=== PATIENT | male | born 1965 | race Caucasian/White ===

== ENCOUNTER 2021-06-17 11:12 | Emergency (ER) | payer SELFPAY ==
--- NOTE | 2021-06-17 11:36 | EDM.PDOC ---
ED HPI GENERAL MEDICAL PROBLEM - General Chief Complaint: ENT Problem Stated Complaint: LEFT EAR PAIN Time Seen by Provider: 06/17/21 11:14 Source of Information: Reports: Patient History Limitations: Reports: No Limitations - History of Present Illness INITIAL COMMENTS - FREE TEXT/NARRATIVE: HISTORY AND PHYSICAL: History of present illness: Patient is a 56-year-old male who presents to the emergency room with complaints of left ear pain over the past few days. Pain is worse today. He also has pain to the left side of his throat. Patient denies any fever, chills, headache, change in vision, syncope or near syncope. Denies any chest pain, back pain, shortness of breath or cough. Denies any GI or symptoms. Patient has been eating and drinking appropriately. Review of systems: As per history of present illness and below otherwise all systems reviewed and negative. Past medical history: As per history of present illness and as reviewed below otherwise noncontr ibutory. Surgical history: As per history of present illness and as reviewed below otherwise noncontributory. Social history: See social history for further information Family history: As per history of present illness and as reviewed below otherwise noncontributory. Physical exam: General: Well developed and well nourished 56 year old male. Alert and orientated x 3. Nontoxic in appearance and in no acute distress. Vital signs are stable and have been reviewed by me. Nursing notes were reviewed. HEENT: Atraumatic, normocephalic, pupils equal and reactive bilaterally, negative for conjunctival pallor or scleral icterus, mucous membranes moist, TMs normal on right, left TM is erythematous at the 12 to 2 o'clock position with dull light reflex. Throat clear, neck supple, nontender, trachea midline. No drooling or trismus noted. No meningeal signs. No hot potato voice noted. Lungs: Clear to auscultation bilaterally. No wheezes, rales, or rhonchi. Chest nontender. Normal work of breathing, no accessory muscles used. Heart: S1S2, regular rate and rhythm without overt murmur, gallops, or rubs. No JVD. No peripheral edema Abdomen: Soft, nondistended, nontender. Skin: Intact, warm, dry. No lesions or rashes noted. Hematologic: No petechiae or purpra. Mucosa appropriate color and normal nail bed color and refill. Extremities: Atraumatic, moves all extremities per self without difficulty or deficits, negative for cords or calf pain. Neurovascular unremarkable. Neuro: Awake, alert, oriented. Cranial nerves II through XII unremarkable. Cerebellum unremarkable. Motor and sensory unremarkable throughout. Exam nonfocal. Psychiatric: Mood and affect are appropriate. Normal thought process. Answering questions appropriately. Notes: *This patient was seen and evaluated during the 2019 SARS-CoV-2 novel coronavirus pandemic period. Community viral transmission is ongoing at time of this encounter and the emergency department is operating under pandemic response procedures. I have talked with the patient about today's findings, in addition to providing specific details for plan of care. Reassessment at the time of disposition demonstrates that the patient is in no acute distress. The patient is stable for discharge, counseling was provided and we discussed in great detail signs and symptoms that would prompt them to return to the Emergency Department. Medication, follow up and supportive care measures were reviewed and discussed. Voices understanding and is agreeable to plan of care. Denies any further questions or concerns at this time. Diagnostics: None Therapeutics: None Prescription: Augmentin Impression: Otitis Media Plan: 1. You were evaluated today on an emergent basis. You have an infection of the left ear. 2. You can alternate Tylenol and ibuprofen as needed for pain and fever management. 3. We encourage you to follow up with your primary care provider and/or recommended specialist in the next few days for re-evaluation and further ca re/management. 4. If your symptoms should worsen, new symptoms develop or any of the signs and symptoms we discussed should arise please return to the emergency room or call 911 (if needed). Definitive disposition and diagnosis as appropriate pending reevaluation and review of above. Throat Pain Score (Numeric/FACES): 8 - Related Data Allergies Allergy/AdvReac Type Severity Reaction Status Date / Time No Known Allergies Allergy Verified 06/17/21 11:27 Home Meds: Home Meds Amoxicillin/Clavulanate K [Augmentin 875-125 MG] 1 tab PO BID 10 Days #20 tablet 06/17/21 [Rx] Hydrocodone/Acetaminophen [HYDROcodone-Acetaminophen 5-325 MG] 1 - 2 tab PO Q4HR PRN #10 tablet 06/17/21 [Rx] Past Medical History - Past Health History Medical/Surgical History: Denies Medical/Surgical History - Infectious Disease History Infectious Disease History: Reports: Chicken Pox Social & Family History - Tobacco Use Tobacco Use Status *Q: Current Every Day Tobacco User Years of Tobacco use: 30 Packs/Tins Daily: 0.2 - Caffeine Use Caffeine Use: Reports: None - Recreational Drug Use Recreational Drug Use: No ED ROS ENT - Review of Systems Review Of Systems: Comprehensive ROS is negative, except as noted in HPI. ED EXAM, ENT - Physical Exam Exam: See Below (See dictation) Course - Vital Signs Last Recorded V/S: Last Vital Signs Temp 97.2 F 06/17/21 11:27 Pulse 93 06/17/21 11:27 Resp 16 06/17/21 11:27 BP 149/96 H 06/17/21 11:27 Pulse Ox 95 06/17/21 11:27 Departure - Departure Time of Disposition: 11:35 Disposition: Home, Self-Care 01 Clinical Impression: Otitis media Qualifiers: Otitis media type: suppurative Chronicity: acute Laterality: left Recurrence: non-recurrent Spontaneous tympanic membrane rupture: without spontaneous rupture Qualified Code(s): H66.002 - Acute suppurative otitis media without spontaneous rupture of ear drum, left ear - Discharge Information Prescriptions: Amoxicillin/Clavulanate K [Augmentin 875-125 MG] 1 tab PO BID 10 Days #20 tablet Hydrocodone/Acetaminophen [HYDROcodone-Acetaminophen 5-325 MG] 1 - 2 tab PO Q4HR PRN #10 tablet PRN Reason: Pain (Moderate 4-6) Instructions: Otitis Media, Adult, [id number] Referrals: PCP,None [Primary Care Provider] - Forms: ED Department Discharge Additional Instructions: The following information is given to patients seen in the emergency department who are being discharged to home. This information is to outline your options for follow-up care. We provide all patients seen in our emergency department with a follow-up referral. The need for follow-up, as well as the timing and circumstances, are variable depending upon the specifics of your emergency department visit. If you don't have a primary care physician on staff, we will provide you with a referral. We always advise you to contact your personal physician following an emergency department visit to inform them of the circumstance of the visit and for follow-up with them and/or the need for any referrals to a consulting specialist. The emergency department will also refer you to a specialist when appropriate. This referral assures that you have the opportunity for follow-up care with a specialist. All of these measure are taken in an effort to provide you with optimal care, which includes your follow-up. Under all circumstances we always encourage you to contact your private physician who remains a resource for coordinating your care. When calling for follow-up care, please make the office aware that this follow-up is from your recent emergency room visit. If for any reason you are refused follow-up, please contact the [facility] Emergency Department at and asked to speak to the emergency department charge nurse. [facility] [address] [place] [id number] [facility] [address] [place] [id number] Thank you for choosing the [facility] emergency department in [place] for your medical needs today. It was a pleasure caring for you. Today you were seen in the emergency department for ear infection. 1. You were evaluated today on an emergent basis. You have an infection of the left ear. 2. You can alternate Tylenol and ibuprofen as needed for pain and fever management. 3. We encourage you to follow up with your primary care provider and/or recommended specialist in the next few days for re-evaluation and further care/management. 4. If your symptoms should worsen, new symptoms develop or any of the signs and symptoms we discussed should arise please return to the emergency room or call 911 (if needed). Sepsis Event Note (ED) - Evaluation Sepsis Screening Result: No Definite Risk - Focused Exam Vital Signs: Vital Signs Temp Pulse Resp BP Pulse Ox 06/17/21 11:27 97.2 F 93 16 149/96 H 95
== END 2021-06-17 11:45 | disposition home or self-care (01) ==
LOC: MW.ED 11:12
DX: H66.002 Acute suppurative otitis media without spontaneous rupture of ear drum, left ear (principal); Z72.0 Tobacco use
CPT/HCPCS: 99282

== ENCOUNTER 2023-04-01 18:51 | Emergency (ER) | payer MEDICAID ==
[2023-04-01] MEDS ORDERED: predniSONE 20 MG Tab PO STA (20:42)
== END 2023-04-01 20:50 | disposition home or self-care (01) ==
LOC: MW.ED 18:51
DX: R00.8 Other abnormalities of heart beat (principal); L50.9 Urticaria, unspecified
CPT/HCPCS: 93005; 99283; A9270; 93010

== ENCOUNTER 2023-08-17 16:48 | Inpatient (IN) | payer MEDICAID ==
[2023-08-17] MEDS ORDERED: Ondansetron 4 MG/2 ML SDV IVPUSH ONE (17:25)
[2023-08-17] MEDS ORDERED: Sodium Chloride 0.9% 10 ML Syringe FLUSH PRN (17:25)
[2023-08-17] MEDS ORDERED: Sodium Chloride 0.9% 2.5 ML Syringe FLUSH PRN (17:25)
[2023-08-17] MEDS ORDERED: Sodium Chloride 0.9% 1,000 ML IV ONE ×2 (17:25→19:01)
[2023-08-17 17:32] LABS: HEMATOCRIT 47.6 % (42.0-52.0); HEMOGLOBIN 16.6 g/dL (14.0-18.0); MEAN CORPUSCULAR HEMOGLOBIN 31.3 pg (28.0-32.0); MEAN CORPUSCULAR HGB CONC 34.9 g/dL (32.0-36.0); MEAN CORPUSCULAR VOLUME 89.6 fL (83.0-99.0); MEAN PLATELET VOLUME 10.7 fL (9.4-12.4); PLATELET COUNT,PLT 189 K/uL (150-400); RED BLOOD CELL COUNT 5.31 M/uL (4.52-5.90); WHITE BLOOD CELL COUNT,WBC 12.75 K/uL (3.9-11.3)
[2023-08-17 18:04] LABS: A/G RATIO 0.9 (0.9-1.6); ALBUMIN 4.3 g/dL (3.4-5.0); BILIRUBIN TOTAL 0.5 mg/dL (0.2-1.0); CALCIUM 9.9 mg/dL (8.5-10.1); CREATININE 2.4 mg/dL (0.8-1.3); EST CRCL DRUG DOSING (CG) 38.44 mL/min; POTASSIUM,K 4.1 mmol/L (3.5-5.1); PROTEIN TOTAL,TP 9.3 g/dL (6.4-8.2)
[2023-08-17 18:17] LABS: BAND ABSOLUTE MAN 0.5; BAND PERCENT MAN 4 %; LYMPHOCYTES ABSOLUTE MAN 0.9 (0.6-2.4); LYMPHOCYTES PERCENT MAN 7 % (16.0-40.0); MONOCYTES ABSOLUTE MAN 0.9 (0.0-0.8); MONOCYTES PERCENT MAN 7 % (0.0-15.0); SEG NEUTROPHILS ABSOLUTE MAN 10.5 (1.4-5.7); SEG NEUTROPHILS PERCENT MAN 82 % (48.0-80.0)
[2023-08-17 19:21] LABS: APPEARANCE,URINE CLEAR; COLOR,URINE YELLOW; GLUCOSE,URINE NEGATIVE (NEGATIVE); KETONES,URINE TRACE mg/dL (NEGATIVE); LEUKOCYTE ESTERASE,URINE NEGATIVE (NEGATIVE); NITRITE,URINE NEGATIVE (NEGATIVE); OCCULT BLOOD,URINE NEGATIVE (NEGATIVE); PROTEIN,URINE 100 mg/dL (NEGATIVE); UROBILINOGEN,URINE 0.2 EU/dL (<2.0)
[2023-08-17 19:26] LABS: BILIRUBIN,URINE SMALL (NEGATIVE)
[2023-08-17 19:37] LABS: BACTERIA,URINE FEW (NEGATIVE); MUCUS,URINE LIGHT (NONE-MOD); RBC,URINE 0-2 (0-2/HPF); SQUAMOUS EPITHELIAL CELLS,UR FEW; WBC,URINE 0-2 (0-5/HPF)
[2023-08-17] MEDS ORDERED: Loperamide 2 MG Cap PO ONE (23:18)
[2023-08-17] MEDS ORDERED: atorvaSTATin 20 MG Tab PO ONE (23:45)
[2023-08-17] MEDS: Sodium Chloride 0.9% 1,000 ML IV SCH (23:55)
[2023-08-17] MEDS: atorvaSTATin 20 MG Tab PO SCH (23:55)
[2023-08-18] MEDS: Ondansetron 4 MG/2 ML SDV IVPUSH PRN ×2 (04:41→20:50)
[2023-08-18 06:25] LABS: HEMATOCRIT 43.5 % (42.0-52.0); HEMOGLOBIN 15.3 g/dL (14.0-18.0); MEAN CORPUSCULAR HEMOGLOBIN 31.2 pg (28.0-32.0); MEAN CORPUSCULAR HGB CONC 35.2 g/dL (32.0-36.0); MEAN CORPUSCULAR VOLUME 88.8 fL (83.0-99.0); MEAN PLATELET VOLUME 10.9 fL (9.4-12.4); PLATELET COUNT,PLT 186 K/uL (150-400)
[2023-08-18] MEDS: Sodium Chloride 0.9% 1,000 ML IV SCH ×3 (06:38→20:52)
[2023-08-18 06:52] LABS: A/G RATIO 0.9 (0.9-1.6); ALBUMIN 3.9 g/dL (3.4-5.0); BILIRUBIN TOTAL 0.5 mg/dL (0.2-1.0); CALCIUM 9.5 mg/dL (8.5-10.1); CARBON DIOXIDE,CO2 23.2 mmol/L (21.0-32.0); CREATININE 1.6 mg/dL (0.8-1.3); EST CRCL DRUG DOSING (CG) 48.66 mL/min; POTASSIUM,K 3.5 mmol/L (3.5-5.1); PROTEIN TOTAL,TP 8.3 g/dL (6.4-8.2)
[2023-08-18 07:01] LABS: BAND ABSOLUTE MAN 0.6; BAND PERCENT MAN 4 %; EOSINOPHILS ABSOLUTE MAN 0.1 (0.0-0.7); EOSINOPHILS PERCENT MAN 1 % (0.0-7.0); LYMPHOCYTES ABSOLUTE MAN 1.5 (0.6-2.4); LYMPHOCYTES PERCENT MAN 11 % (16.0-40.0); MONOCYTES ABSOLUTE MAN 2.1 (0.0-0.8); MONOCYTES PERCENT MAN 15 % (0.0-15.0); SEG NEUTROPHILS ABSOLUTE MAN 9.5 (1.4-5.7); SEG NEUTROPHILS PERCENT MAN 69 % (48.0-80.0)
[2023-08-18] MEDS ORDERED: Loperamide 2 MG Cap PO ONE (09:27)
[2023-08-18] MEDS: Pantoprazole 40 MG Tab.CR PO SCH (10:19)
[2023-08-18] MEDS: Sucralfate Suspension 1 GM/10 ML Cup PO SCH (16:34)
[2023-08-18] MEDS: atorvaSTATin 20 MG Tab PO SCH (20:50)
[2023-08-18] MEDS ORDERED: atorvaSTATin 20 MG Tab PO SCH (21:00)
[2023-08-19] MEDS: Ondansetron 4 MG/2 ML SDV IVPUSH PRN ×4 (03:24→23:34)
[2023-08-19] MEDS: Sodium Chloride 0.9% 1,000 ML IV SCH ×2 (03:26→10:06)
[2023-08-19] MEDS: Sucralfate Suspension 1 GM/10 ML Cup PO SCH ×2 (05:38→06:37)
[2023-08-19 06:14] LABS: BASOPHILS ABSOLUTE AUTO 0.07 K/uL (0.00-0.20); BASOPHILS PERCENT AUTO 0.6 % (0.0-1.0); EOSINOPHILS ABSOLUTE AUTO 0.06 K/uL (0.00-0.45); EOSINOPHILS PERCENT AUTO 0.5 % (0.0-6.0); HEMATOCRIT 44.8 % (42.0-52.0); HEMOGLOBIN 15.8 g/dL (14.0-18.0); IMMATURE GRAN ABSOLUTE AUTO 0.04 K/uL (0.00-0.05); IMMATURE GRAN PERCENT AUTO 0.4 % (0.0-0.4); LYMPHOCYTES ABSOLUTE AUTO 1.14 K/uL (1.00-4.80); LYMPHOCYTES PERCENT AUTO 10.1 % (24.0-44.0); MEAN CORPUSCULAR HEMOGLOBIN 31.3 pg (28.0-32.0); MEAN CORPUSCULAR HGB CONC 35.3 g/dL (32.0-36.0); MEAN CORPUSCULAR VOLUME 88.9 fL (83.0-99.0); MEAN PLATELET VOLUME 11.2 fL (9.4-12.4); MONOCYTES PERCENT AUTO 9.8 % (0.0-8.0); NEUTROPHILS ABSOLUTE AUTO 8.85 K/uL (1.80-7.70); NEUTROPHILS PERCENT AUTO 78.6 % (41.0-71.0); PLATELET COUNT,PLT 192 K/uL (150-400); RED BLOOD CELL COUNT 5.04 M/uL (4.52-5.90); WHITE BLOOD CELL COUNT,WBC 11.26 K/uL (3.9-11.3)
[2023-08-19 06:44] LABS: ALBUMIN 3.9 g/dL (3.4-5.0); BILIRUBIN TOTAL 0.7 mg/dL (0.2-1.0); CALCIUM 9.5 mg/dL (8.5-10.1); CARBON DIOXIDE,CO2 22.5 mmol/L (21.0-32.0); CREATININE 1.6 mg/dL (0.8-1.3); EST CRCL DRUG DOSING (CG) 55.65 mL/min; PROTEIN TOTAL,TP 8.5 g/dL (6.4-8.2)
[2023-08-19 06:50] LABS: POTASSIUM,K 3.5 mmol/L (3.5-5.1)
[2023-08-19 06:52] LABS: A/G RATIO 0.9 (0.9-1.6)
[2023-08-19] MEDS: Pantoprazole 40 MG Tab.CR PO SCH (08:45)
[2023-08-19] MEDS: Pantoprazole 40 MG in Sodium Chloride 0.9% 10 ML IVPUSH SCH (09:41)
[2023-08-19] MEDS: Loperamide 2 MG Cap PO SCH ×7 (09:41→20:24)
[2023-08-19] MEDS: Sucralfate 1 GM Tab PO SCH ×2 (12:20→18:09)
[2023-08-19] MEDS: Dextrose 5%-Lactated Ringers 1,000 ML IV SCH ×2 (16:24→23:35)
[2023-08-19] MEDS: atorvaSTATin 20 MG Tab PO SCH (20:24)
[2023-08-20 06:06] LABS: BASOPHILS ABSOLUTE AUTO 0.07 K/uL (0.00-0.20); BASOPHILS PERCENT AUTO 0.5 % (0.0-1.0); EOSINOPHILS ABSOLUTE AUTO 0.12 K/uL (0.00-0.45); EOSINOPHILS PERCENT AUTO 0.9 % (0.0-6.0); HEMATOCRIT 45.1 % (42.0-52.0); HEMOGLOBIN 16.7 g/dL (14.0-18.0); IMMATURE GRAN ABSOLUTE AUTO 0.06 K/uL (0.00-0.05); IMMATURE GRAN PERCENT AUTO 0.4 % (0.0-0.4); LYMPHOCYTES ABSOLUTE AUTO 1.37 K/uL (1.00-4.80); LYMPHOCYTES PERCENT AUTO 9.8 % (24.0-44.0); MEAN CORPUSCULAR VOLUME 86.4 fL (83.0-99.0); MEAN PLATELET VOLUME 11.6 fL (9.4-12.4); MONOCYTES ABSOLUTE AUTO 1.48 K/uL (0.00-0.80); MONOCYTES PERCENT AUTO 10.6 % (0.0-8.0); NEUTROPHILS ABSOLUTE AUTO 10.92 K/uL (1.80-7.70); NEUTROPHILS PERCENT AUTO 77.8 % (41.0-71.0); PLATELET COUNT,PLT 212 K/uL (150-400); RED BLOOD CELL COUNT 5.22 M/uL (4.52-5.90); WHITE BLOOD CELL COUNT,WBC 14.02 K/uL (3.9-11.3)
[2023-08-20 06:34] LABS: A/G RATIO 0.8 (0.9-1.6); BILIRUBIN TOTAL 0.6 mg/dL (0.2-1.0); CALCIUM 9.6 mg/dL (8.5-10.1); CARBON DIOXIDE,CO2 16.3 mmol/L (21.0-32.0); EST CRCL DRUG DOSING (CG) 43.03 mL/min; POTASSIUM,K 2.8 mmol/L (3.5-5.1); PROTEIN TOTAL,TP 8.8 g/dL (6.4-8.2)
[2023-08-20] MEDS: Sucralfate 1 GM Tab PO SCH ×3 (06:34→17:04)
[2023-08-20] MEDS: Ondansetron 4 MG/2 ML SDV IVPUSH PRN ×2 (06:34→21:37)
[2023-08-20] MEDS ORDERED: Potassium Chloride 20 MEQ Tab.ER PO ONE ×2 (07:19→09:31)
[2023-08-20] MEDS: Dextrose 5%-Lactated Ringers 1,000 ML IV SCH ×3 (07:54→21:54)
[2023-08-20] MEDS: Octreotide 100 MCG/1 ML Amp SUBCUT SCH ×3 (08:02→21:41)
[2023-08-20] MEDS: Prochlorperazine 10 MG/2 ML SDV IVPUSH PRN (08:39)
[2023-08-20] MEDS: Pantoprazole 40 MG in Sodium Chloride 0.9% 10 ML IVPUSH SCH (08:40)
[2023-08-20] MEDS ORDERED: Lactated Ringers 1,000 ML IV SCH (10:45)
[2023-08-20] MEDS: Loperamide 2 MG Cap PO PRN (17:04)
[2023-08-20] MEDS: atorvaSTATin 20 MG Tab PO SCH (21:44)
[2023-08-21] MEDS: Prochlorperazine 10 MG/2 ML SDV IVPUSH PRN ×3 (01:22→18:12)
[2023-08-21] MEDS ORDERED: Lactated Ringers 500 ML IV STA (02:02)
[2023-08-21] MEDS: Dextrose 5%-Lactated Ringers 1,000 ML IV SCH ×4 (05:34→23:41)
[2023-08-21] MEDS: Sucralfate 1 GM Tab PO SCH ×4 (06:09→16:16)
[2023-08-21] MEDS: Octreotide 100 MCG/1 ML Amp SUBCUT SCH ×3 (06:09→21:42)
[2023-08-21 06:17] LABS: BASOPHILS PERCENT AUTO 0.8 % (0.0-1.0); EOSINOPHILS ABSOLUTE AUTO 0.13 K/uL (0.00-0.45); EOSINOPHILS PERCENT AUTO 1.1 % (0.0-6.0); HEMATOCRIT 44.9 % (42.0-52.0); HEMOGLOBIN 16.5 g/dL (14.0-18.0); IMMATURE GRAN ABSOLUTE AUTO 0.04 K/uL (0.00-0.05); IMMATURE GRAN PERCENT AUTO 0.3 % (0.0-0.4); LYMPHOCYTES ABSOLUTE AUTO 1.04 K/uL (1.00-4.80); LYMPHOCYTES PERCENT AUTO 8.8 % (24.0-44.0); MEAN CORPUSCULAR HEMOGLOBIN 31.5 pg (28.0-32.0); MEAN CORPUSCULAR HGB CONC 36.7 g/dL (32.0-36.0); MEAN CORPUSCULAR VOLUME 85.7 fL (83.0-99.0); MONOCYTES ABSOLUTE AUTO 1.48 K/uL (0.00-0.80); MONOCYTES PERCENT AUTO 12.5 % (0.0-8.0); NEUTROPHILS ABSOLUTE AUTO 9.08 K/uL (1.80-7.70); NEUTROPHILS PERCENT AUTO 76.5 % (41.0-71.0); PLATELET COUNT,PLT 218 K/uL (150-400); RED BLOOD CELL COUNT 5.24 M/uL (4.52-5.90); WHITE BLOOD CELL COUNT,WBC 11.87 K/uL (3.9-11.3)
[2023-08-21] MEDS: Loperamide 2 MG Cap PO PRN ×2 (06:18→16:16)
[2023-08-21] MEDS: Ondansetron 4 MG/2 ML SDV IVPUSH PRN ×3 (06:19→21:42)
[2023-08-21 06:39] LABS: A/G RATIO 0.8 (0.9-1.6); ALBUMIN 3.7 g/dL (3.4-5.0); BILIRUBIN TOTAL 0.6 mg/dL (0.2-1.0); CARBON DIOXIDE,CO2 17.3 mmol/L (21.0-32.0); CREATININE 1.8 mg/dL (0.8-1.3); EST CRCL DRUG DOSING (CG) 48.13 mL/min; MAGNESIUM 2.7 mg/dL (1.8-2.4); POTASSIUM,K 2.8 mmol/L (3.5-5.1); PROTEIN TOTAL,TP 8.4 g/dL (6.4-8.2)
[2023-08-21] MEDS: Pantoprazole 40 MG in Sodium Chloride 0.9% 10 ML IVPUSH SCH (08:51)
[2023-08-21] MEDS ORDERED: Potassium Chloride 20 MEQ Tab.ER PO ONE (11:33)
[2023-08-21] MEDS ORDERED: Sodium Chloride 0.9% 1,000 ML IV ONE (11:34)
[2023-08-21] MEDS ORDERED: Atropine/Diphenoxylate 0.025-2.5 MG Tab PO PRN (11:36)
[2023-08-21] MEDS ORDERED: NS with KCl 40mEq 1,000 ML IV SCH (11:45)
[2023-08-21 13:05] LABS: CORONAVIRUS COVID-19 NAA NEGATIVE (NEGATIVE); INFLUENZA A NAA NEGATIVE (NEGATIVE); INFLUENZA B NAA NEGATIVE (NEGATIVE)
[2023-08-21] MEDS: Enoxaparin 40 MG/0.4 ML Syringe SUBCUT SCH (13:20)
[2023-08-21] MEDS ORDERED: Acetaminophen 325 MG Tab PO PRN (14:04)
[2023-08-21 15:01] LABS: LACTIC ACID 1.3 mmol/L (0.4-2.0)
[2023-08-21] MEDS: atorvaSTATin 20 MG Tab PO SCH (21:42)
[2023-08-22] MEDS: Prochlorperazine 10 MG/2 ML SDV IVPUSH PRN (02:36)
[2023-08-22] MEDS: Dextrose 5%-Lactated Ringers 1,000 ML IV SCH ×4 (04:58→23:22)
[2023-08-22] MEDS: Octreotide 100 MCG/1 ML Amp SUBCUT SCH ×3 (06:24→21:34)
[2023-08-22] MEDS: Sucralfate 1 GM Tab PO SCH ×4 (06:25→16:47)
[2023-08-22 06:45] LABS: HEMATOCRIT 45.4 % (42.0-52.0); HEMOGLOBIN 16.4 g/dL (14.0-18.0); MEAN CORPUSCULAR HEMOGLOBIN 31.1 pg (28.0-32.0); MEAN CORPUSCULAR HGB CONC 36.1 g/dL (32.0-36.0); PLATELET COUNT,PLT 241 K/uL (150-400); RED BLOOD CELL COUNT 5.28 M/uL (4.52-5.90); WHITE BLOOD CELL COUNT,WBC 13.18 K/uL (3.9-11.3)
[2023-08-22 07:03] LABS: BAND ABSOLUTE MAN 0.5; BAND PERCENT MAN 4 %; EOSINOPHILS ABSOLUTE MAN 0.1 (0.0-0.7); EOSINOPHILS PERCENT MAN 1 % (0.0-7.0); LYMPHOCYTES ABSOLUTE MAN 1.1 (0.6-2.4); LYMPHOCYTES PERCENT MAN 8 % (16.0-40.0); MONOCYTES PERCENT MAN 15 % (0.0-15.0); SEG NEUTROPHILS ABSOLUTE MAN 9.5 (1.4-5.7); SEG NEUTROPHILS PERCENT MAN 72 % (48.0-80.0)
[2023-08-22 07:11] LABS: A/G RATIO 0.7 (0.9-1.6); ALBUMIN 3.5 g/dL (3.4-5.0); BILIRUBIN TOTAL 0.5 mg/dL (0.2-1.0); CALCIUM 9.3 mg/dL (8.5-10.1); CARBON DIOXIDE,CO2 20.1 mmol/L (21.0-32.0); CREATININE 1.6 mg/dL (0.8-1.3); EST CRCL DRUG DOSING (CG) 54.84 mL/min; MAGNESIUM 2.3 mg/dL (1.8-2.4); PHOSPHORUS 2.2 mg/dL (2.6-4.7); PROTEIN TOTAL,TP 8.3 g/dL (6.4-8.2)
[2023-08-22] MEDS ORDERED: Potassium Chloride 20 MEQ Tab.ER PO ONE (07:46)
[2023-08-22] MEDS: Pantoprazole 40 MG in Sodium Chloride 0.9% 10 ML IVPUSH SCH (08:53)
[2023-08-22] MEDS: Ondansetron 4 MG/2 ML SDV IVPUSH PRN ×3 (09:08→21:32)
[2023-08-22] MEDS: Enoxaparin 40 MG/0.4 ML Syringe SUBCUT SCH ×2 (11:26→11:53)
[2023-08-22] MEDS ORDERED: Lactated Ringers 1,000 ML IV SCH ×2 (12:15→17:00)
[2023-08-22] MEDS: Loperamide 2 MG Cap PO SCH ×3 (15:09→23:27)
[2023-08-22] MEDS: ZINC 50 MG PO SCH (15:09)
[2023-08-22] MEDS: Phosphorus #1 250 MG Tab PO SCH ×2 (18:05→23:27)
[2023-08-22] MEDS: atorvaSTATin 20 MG Tab PO SCH (21:34)
[2023-08-23] MEDS: Loperamide 2 MG Cap PO SCH ×7 (03:31→23:47)
[2023-08-23] MEDS: Dextrose 5%-Lactated Ringers 1,000 ML IV SCH ×4 (04:31→20:29)
[2023-08-23] MEDS: Ondansetron 4 MG/2 ML SDV IVPUSH PRN ×4 (04:39→20:32)
[2023-08-23] MEDS: Sucralfate 1 GM Tab PO SCH ×4 (06:21→17:58)
[2023-08-23] MEDS: Phosphorus #1 250 MG Tab PO SCH (06:21)
[2023-08-23] MEDS: Octreotide 100 MCG/1 ML Amp SUBCUT SCH (06:24)
[2023-08-23 07:37] LABS: HEMATOCRIT 41.6 % (42.0-52.0); HEMOGLOBIN 15.1 g/dL (14.0-18.0); MEAN CORPUSCULAR HEMOGLOBIN 30.9 pg (28.0-32.0); MEAN CORPUSCULAR HGB CONC 36.3 g/dL (32.0-36.0); MEAN CORPUSCULAR VOLUME 85.1 fL (83.0-99.0); MEAN PLATELET VOLUME 11.1 fL (9.4-12.4); PLATELET COUNT,PLT 244 K/uL (150-400); RED BLOOD CELL COUNT 4.89 M/uL (4.52-5.90); WHITE BLOOD CELL COUNT,WBC 11.86 K/uL (3.9-11.3)
[2023-08-23 07:53] LABS: A/G RATIO 0.7 (0.9-1.6); ALBUMIN 2.9 g/dL (3.4-5.0); BILIRUBIN TOTAL 0.5 mg/dL (0.2-1.0); CALCIUM 8.8 mg/dL (8.5-10.1); CARBON DIOXIDE,CO2 20.6 mmol/L (21.0-32.0); CREATININE 1.4 mg/dL (0.8-1.3); EST CRCL DRUG DOSING (CG) 62.28 mL/min; PHOSPHORUS 2.6 mg/dL (2.6-4.7); POTASSIUM,K 2.7 mmol/L (3.5-5.1); PROTEIN TOTAL,TP 7.2 g/dL (6.4-8.2)
[2023-08-23] MEDS ORDERED: Octreotide 100 MCG/1 ML Amp SUBCUT SCH (08:15)
[2023-08-23 08:35] LABS: BAND ABSOLUTE MAN 1.5; BAND PERCENT MAN 13 %; SEG NEUTROPHILS ABSOLUTE MAN 8.4 (1.4-5.7); SEG NEUTROPHILS PERCENT MAN 71 % (48.0-80.0)
[2023-08-23 08:36] LABS: LYMPHOCYTES ABSOLUTE MAN 0.7 (0.6-2.4); LYMPHOCYTES PERCENT MAN 6 % (16.0-40.0); MONOCYTES ABSOLUTE MAN 1.2 (0.0-0.8); MONOCYTES PERCENT MAN 10 % (0.0-15.0)
[2023-08-23] MEDS: Pantoprazole 40 MG in Sodium Chloride 0.9% 10 ML IVPUSH SCH (09:28)
[2023-08-23] MEDS: Potassium Chloride 20 MEQ Tab.ER PO SCH ×2 (09:29→10:24)
[2023-08-23] MEDS: Potassium Chloride 20 MEQ in Premix Bag 1 BAG IV SCH ×2 (09:30→12:51)
[2023-08-23] MEDS: ZINC 50 MG PO SCH (09:33)
[2023-08-23] MEDS ORDERED: Potassium Chloride 20 MEQ Tab.ER ONE (10:10)
[2023-08-23] MEDS: Octreotide 100 MCG/1 ML Amp IV SCH ×2 (10:33→17:58)
[2023-08-23] MEDS: Enoxaparin 40 MG/0.4 ML Syringe SUBCUT SCH (12:05)
[2023-08-23] MEDS: atorvaSTATin 20 MG Tab PO SCH (20:36)
[2023-08-24] MEDS: Octreotide 100 MCG/1 ML Amp IV SCH ×2 (05:48→10:56)
[2023-08-24] MEDS: Loperamide 2 MG Cap PO SCH ×3 (05:48→10:56)
[2023-08-24 06:11] LABS: HEMATOCRIT 45.5 % (42.0-52.0); HEMOGLOBIN 16.6 g/dL (14.0-18.0); MEAN CORPUSCULAR HEMOGLOBIN 30.9 pg (28.0-32.0); MEAN CORPUSCULAR HGB CONC 36.5 g/dL (32.0-36.0); MEAN CORPUSCULAR VOLUME 84.7 fL (83.0-99.0); MEAN PLATELET VOLUME 11.1 fL (9.4-12.4); PLATELET COUNT,PLT 256 K/uL (150-400); RED BLOOD CELL COUNT 5.37 M/uL (4.52-5.90); WHITE BLOOD CELL COUNT,WBC 12.86 K/uL (3.9-11.3)
[2023-08-24 06:39] LABS: A/G RATIO 0.7 (0.9-1.6); ALBUMIN 3.1 g/dL (3.4-5.0); BILIRUBIN TOTAL 0.5 mg/dL (0.2-1.0); CALCIUM 9.4 mg/dL (8.5-10.1); CARBON DIOXIDE,CO2 20.1 mmol/L (21.0-32.0); CREATININE 1.7 mg/dL (0.8-1.3); EST CRCL DRUG DOSING (CG) 51.29 mL/min; MAGNESIUM 2.1 mg/dL (1.8-2.4); PHOSPHORUS 3.5 mg/dL (2.6-4.7); POTASSIUM,K 3.1 mmol/L (3.5-5.1); PROTEIN TOTAL,TP 7.7 g/dL (6.4-8.2)
[2023-08-24 06:55] LABS: BAND ABSOLUTE MAN 4.5; BAND PERCENT MAN 35 %; LYMPHOCYTES ABSOLUTE MAN 1.2 (0.6-2.4); LYMPHOCYTES PERCENT MAN 9 % (16.0-40.0); METAMYELOCYTE ABSOLUTE MAN 0.3; METAMYELOCYTE PERCENT MAN 2 %; MONOCYTES ABSOLUTE MAN 0.9 (0.0-0.8); MONOCYTES PERCENT MAN 7 % (0.0-15.0); SEG NEUTROPHILS PERCENT MAN 47 % (48.0-80.0)
[2023-08-24] MEDS: Sucralfate 1 GM Tab PO SCH ×2 (07:40→11:50)
[2023-08-24] MEDS ORDERED: Potassium Chloride 20 MEQ Tab.ER PO ONE (08:00)
[2023-08-24] MEDS: ZINC 50 MG PO SCH (09:26)
[2023-08-24] MEDS: Pantoprazole 40 MG in Sodium Chloride 0.9% 10 ML IVPUSH SCH (09:26)
== END 2023-08-24 11:50 | disposition left against medical advice (07) | DRG 596 ==
LOC: MW.ED 16:48 → MW.MS 19:06
PROVIDERS: ADMIT Internal Medicine; ATTEND Internal Medicine
DX: C43.9 Malignant melanoma of skin, unspecified (principal); N17.9 Acute kidney failure, unspecified; R11.2 Nausea with vomiting, unspecified; T45.1X5A Adverse effect of antineoplastic and immunosuppressive drugs, initial encounter; E86.0 Dehydration; E78.00 Pure hypercholesterolemia, unspecified; Z11.52 Encounter for screening for COVID-19; F17.210 Nicotine dependence, cigarettes, uncomplicated; R19.7 Diarrhea, unspecified; D72.829 Elevated white blood cell count, unspecified; Z90.5 Acquired absence of kidney; Z79.899 Other long term (current) drug therapy
CPT/HCPCS: 0240U; 36415; 71045; 71045-26; 74176; 74176-26; 80053; 81001; 82947; 83605; 83690; 83735; 84100; 85025; 87045; 87046; 87324; 87449; 87899; A9270-GY; C9113; J0780; J1650; J2354-JA; J2354-JB-GY; J2405; J3480; J3490; J7030; J7120; J7121

== ENCOUNTER 2023-08-24 18:52 | Inpatient (IN) | payer MEDICAID ==
[2023-08-24] MEDS ORDERED: Sodium Chloride 0.9% 1,000 ML IV ONE (19:54)
[2023-08-24 20:00] LABS: HEMATOCRIT 50.1 % (42.0-52.0); HEMOGLOBIN 18.5 g/dL (14.0-18.0); MEAN CORPUSCULAR HEMOGLOBIN 31.3 pg (28.0-32.0); MEAN CORPUSCULAR HGB CONC 36.9 g/dL (32.0-36.0); MEAN CORPUSCULAR VOLUME 84.6 fL (83.0-99.0); MEAN PLATELET VOLUME 10.8 fL (9.4-12.4); PLATELET COUNT,PLT 297 K/uL (150-400); RED BLOOD CELL COUNT 5.92 M/uL (4.52-5.90); WHITE BLOOD CELL COUNT,WBC 18.78 K/uL (3.9-11.3)
[2023-08-24 20:24] LABS: A/G RATIO 0.6 (0.9-1.6); ALBUMIN 3.6 g/dL (3.4-5.0); BILIRUBIN TOTAL 0.5 mg/dL (0.2-1.0); CALCIUM 10.1 mg/dL (8.5-10.1); CARBON DIOXIDE,CO2 20.9 mmol/L (21.0-32.0); CREATININE 4.3 mg/dL (0.8-1.3); EST CRCL DRUG DOSING (CG) 20.28 mL/min; POTASSIUM,K 3.2 mmol/L (3.5-5.1); PROTEIN TOTAL,TP 9.4 g/dL (6.4-8.2)
[2023-08-24 20:36] LABS: BAND ABSOLUTE MAN 3.2; BAND PERCENT MAN 17 %; LYMPHOCYTES ABSOLUTE MAN 1.5 (0.6-2.4); LYMPHOCYTES PERCENT MAN 8 % (16.0-40.0); METAMYELOCYTE ABSOLUTE MAN 0.6; METAMYELOCYTE PERCENT MAN 3 %; MONOCYTES ABSOLUTE MAN 0.9 (0.0-0.8); MONOCYTES PERCENT MAN 5 % (0.0-15.0); SEG NEUTROPHILS ABSOLUTE MAN 12.6 (1.4-5.7); SEG NEUTROPHILS PERCENT MAN 67 % (48.0-80.0)
[2023-08-24] MEDS ORDERED: Lactated Ringers 1,000 ML IV ONE ×2 (21:11→23:01)
[2023-08-24] MEDS ORDERED: Ondansetron 4 MG/2 ML SDV IVPUSH ONE (21:19)
[2023-08-24] MEDS ORDERED: Loperamide 2 MG Cap PO PRN (23:02)
[2023-08-25] MEDS: Lactated Ringers 1,000 ML IV SCH ×5 (01:17→22:05)
[2023-08-25] MEDS: Ondansetron 4 MG/2 ML SDV IVPUSH PRN ×2 (05:38→11:44)
[2023-08-25 06:41] LABS: HEMATOCRIT 42.1 % (42.0-52.0); HEMOGLOBIN 15.8 g/dL (14.0-18.0); MEAN CORPUSCULAR HEMOGLOBIN 31.6 pg (28.0-32.0); MEAN CORPUSCULAR HGB CONC 37.5 g/dL (32.0-36.0); MEAN CORPUSCULAR VOLUME 84.2 fL (83.0-99.0); MEAN PLATELET VOLUME 10.8 fL (9.4-12.4); PLATELET COUNT,PLT 213 K/uL (150-400); WHITE BLOOD CELL COUNT,WBC 17.37 K/uL (3.9-11.3)
[2023-08-25 07:04] LABS: A/G RATIO 0.6 (0.9-1.6); ALBUMIN 2.7 g/dL (3.4-5.0); BILIRUBIN TOTAL 0.5 mg/dL (0.2-1.0); CALCIUM 8.5 mg/dL (8.5-10.1); CARBON DIOXIDE,CO2 23.9 mmol/L (21.0-32.0); CREATININE 2.7 mg/dL (0.8-1.3); EST CRCL DRUG DOSING (CG) 32.39 mL/min; POTASSIUM,K 2.7 mmol/L (3.5-5.1); PROTEIN TOTAL,TP 7.2 g/dL (6.4-8.2)
[2023-08-25 07:19] LABS: BAND ABSOLUTE MAN 4.3; BAND PERCENT MAN 25 %; LYMPHOCYTES ABSOLUTE MAN 1.9 (0.6-2.4); LYMPHOCYTES PERCENT MAN 11 % (16.0-40.0); METAMYELOCYTE ABSOLUTE MAN 0.7; METAMYELOCYTE PERCENT MAN 4 %; MONOCYTES PERCENT MAN 6 % (0.0-15.0); SEG NEUTROPHILS ABSOLUTE MAN 9.4 (1.4-5.7); SEG NEUTROPHILS PERCENT MAN 54 % (48.0-80.0)
[2023-08-25] MEDS ORDERED: Potassium Chloride 20 MEQ Tab.ER PO ONE ×2 (07:35→14:00)
[2023-08-25] MEDS: ZINC 50 MG PO SCH (10:39)
[2023-08-25] MEDS ORDERED: NS with KCl 40mEq 1,000 ML IV ONE (10:45)
[2023-08-25] MEDS ORDERED: predniSONE 20 MG Tab PO ONE (12:00)
[2023-08-25] MEDS: atorvaSTATin 20 MG Tab PO SCH (21:59)
[2023-08-26] MEDS: Ondansetron 4 MG/2 ML SDV IVPUSH PRN ×3 (00:19→14:16)
[2023-08-26] MEDS: Lactated Ringers 1,000 ML IV SCH ×6 (02:08→21:50)
[2023-08-26 06:18] LABS: BASOPHILS ABSOLUTE AUTO 0.04 K/uL (0.00-0.20); BASOPHILS PERCENT AUTO 0.2 % (0.0-1.0); EOSINOPHILS ABSOLUTE AUTO 0.01 K/uL (0.00-0.45); EOSINOPHILS PERCENT AUTO 0.1 % (0.0-6.0); HEMATOCRIT 41.6 % (42.0-52.0); HEMOGLOBIN 15.1 g/dL (14.0-18.0); IMMATURE GRAN ABSOLUTE AUTO 0.12 K/uL (0.00-0.05); IMMATURE GRAN PERCENT AUTO 0.7 % (0.0-0.4); LYMPHOCYTES ABSOLUTE AUTO 0.99 K/uL (1.00-4.80); LYMPHOCYTES PERCENT AUTO 5.7 % (24.0-44.0); MEAN CORPUSCULAR HEMOGLOBIN 30.9 pg (28.0-32.0); MEAN CORPUSCULAR HGB CONC 36.3 g/dL (32.0-36.0); MEAN CORPUSCULAR VOLUME 85.2 fL (83.0-99.0); MEAN PLATELET VOLUME 11.2 fL (9.4-12.4); MONOCYTES ABSOLUTE AUTO 0.99 K/uL (0.00-0.80); MONOCYTES PERCENT AUTO 5.7 % (0.0-8.0); NEUTROPHILS ABSOLUTE AUTO 15.25 K/uL (1.80-7.70); NEUTROPHILS PERCENT AUTO 87.6 % (41.0-71.0); PLATELET COUNT,PLT 185 K/uL (150-400); RED BLOOD CELL COUNT 4.88 M/uL (4.52-5.90)
[2023-08-26 06:26] LABS: A/G RATIO 0.6 (0.9-1.6); ALBUMIN 2.5 g/dL (3.4-5.0); BILIRUBIN TOTAL 0.5 mg/dL (0.2-1.0); CALCIUM 8.6 mg/dL (8.5-10.1); CARBON DIOXIDE,CO2 23.4 mmol/L (21.0-32.0); CREATININE 1.3 mg/dL (0.8-1.3); EST CRCL DRUG DOSING (CG) 67.28 mL/min; MAGNESIUM 2.3 mg/dL (1.8-2.4); POTASSIUM,K 3.2 mmol/L (3.5-5.1); PROTEIN TOTAL,TP 6.9 g/dL (6.4-8.2)
[2023-08-26] MEDS ORDERED: Potassium Chloride 20 MEQ Tab.ER PO ONE (07:50)
[2023-08-26] MEDS ORDERED: predniSONE 20 MG Tab PO SCH (08:00)
[2023-08-26] MEDS: ZINC 50 MG PO SCH (08:42)
[2023-08-26] MEDS: Potassium Chloride 20 MEQ in Premix Bag 1 BAG IV SCH ×2 (08:45→12:38)
[2023-08-26] MEDS: atorvaSTATin 20 MG Tab PO SCH (21:49)
[2023-08-27] MEDS: Lactated Ringers 1,000 ML IV SCH ×2 (00:56→05:36)
[2023-08-27 06:02] LABS: BASOPHILS ABSOLUTE AUTO 0.04 K/uL (0.00-0.20); BASOPHILS PERCENT AUTO 0.2 % (0.0-1.0); EOSINOPHILS ABSOLUTE AUTO 0.01 K/uL (0.00-0.45); EOSINOPHILS PERCENT AUTO 0.1 % (0.0-6.0); HEMATOCRIT 37.1 % (42.0-52.0); HEMOGLOBIN 13.6 g/dL (14.0-18.0); IMMATURE GRAN ABSOLUTE AUTO 0.14 K/uL (0.00-0.05); IMMATURE GRAN PERCENT AUTO 0.7 % (0.0-0.4); LYMPHOCYTES PERCENT AUTO 5.9 % (24.0-44.0); MEAN CORPUSCULAR HEMOGLOBIN 31.3 pg (28.0-32.0); MEAN CORPUSCULAR HGB CONC 36.7 g/dL (32.0-36.0); MEAN CORPUSCULAR VOLUME 85.5 fL (83.0-99.0); MEAN PLATELET VOLUME 10.8 fL (9.4-12.4); MONOCYTES ABSOLUTE AUTO 1.28 K/uL (0.00-0.80); MONOCYTES PERCENT AUTO 6.9 % (0.0-8.0); NEUTROPHILS ABSOLUTE AUTO 16.11 K/uL (1.80-7.70); NEUTROPHILS PERCENT AUTO 86.2 % (41.0-71.0); PLATELET COUNT,PLT 182 K/uL (150-400); RED BLOOD CELL COUNT 4.34 M/uL (4.52-5.90); WHITE BLOOD CELL COUNT,WBC 18.68 K/uL (3.9-11.3)
[2023-08-27 06:37] LABS: ALBUMIN 2.6 g/dL (3.4-5.0); BILIRUBIN TOTAL 0.5 mg/dL (0.2-1.0); CARBON DIOXIDE,CO2 24.3 mmol/L (21.0-32.0); CREATININE 1.1 mg/dL (0.8-1.3); EST CRCL DRUG DOSING (CG) 79.51 mL/min; POTASSIUM,K 3.5 mmol/L (3.5-5.1); PROTEIN TOTAL,TP 6.6 g/dL (6.4-8.2)
[2023-08-27 06:42] LABS: A/G RATIO 0.7 (0.9-1.6)
[2023-08-27] MEDS: Ondansetron 4 MG/2 ML SDV IVPUSH PRN ×2 (07:12→11:19)
[2023-08-27] MEDS ORDERED: 50% Dextrose in Water 50 ML Syringe IVPUSH PRN (07:20)
[2023-08-27] MEDS: Dextrose 5%-Lactated Ringers 1,000 ML IV SCH ×3 (07:28→19:46)
[2023-08-27] MEDS ORDERED: chlorproMAZINE 50 MG/2 ML Amp IM ONE (10:08)
[2023-08-27] MEDS: ZINC 50 MG PO SCH (11:18)
[2023-08-27] MEDS: predniSONE 20 MG Tab PO SCH (11:18)
[2023-08-27] MEDS: atorvaSTATin 20 MG Tab PO SCH ×2 (19:46→20:20)
[2023-08-28] MEDS: Dextrose 5%-Lactated Ringers 1,000 ML IV SCH (03:26)
[2023-08-28] MEDS: Ondansetron 4 MG/2 ML SDV IVPUSH PRN (05:40)
[2023-08-28 06:21] LABS: BASOPHILS ABSOLUTE AUTO 0.03 K/uL (0.00-0.20); BASOPHILS PERCENT AUTO 0.2 % (0.0-1.0); HEMATOCRIT 37.4 % (42.0-52.0); HEMOGLOBIN 13.1 g/dL (14.0-18.0); IMMATURE GRAN ABSOLUTE AUTO 0.14 K/uL (0.00-0.05); IMMATURE GRAN PERCENT AUTO 0.8 % (0.0-0.4); LYMPHOCYTES ABSOLUTE AUTO 1.02 K/uL (1.00-4.80); LYMPHOCYTES PERCENT AUTO 5.5 % (24.0-44.0); MEAN CORPUSCULAR HEMOGLOBIN 30.2 pg (28.0-32.0); MEAN CORPUSCULAR VOLUME 86.2 fL (83.0-99.0); MEAN PLATELET VOLUME 11.5 fL (9.4-12.4); MONOCYTES ABSOLUTE AUTO 1.19 K/uL (0.00-0.80); MONOCYTES PERCENT AUTO 6.4 % (0.0-8.0); NEUTROPHILS ABSOLUTE AUTO 16.22 K/uL (1.80-7.70); NEUTROPHILS PERCENT AUTO 87.1 % (41.0-71.0); PLATELET COUNT,PLT 182 K/uL (150-400); RED BLOOD CELL COUNT 4.34 M/uL (4.52-5.90)
[2023-08-28 06:53] LABS: A/G RATIO 0.7 (0.9-1.6); ALBUMIN 2.6 g/dL (3.4-5.0); BILIRUBIN TOTAL 0.4 mg/dL (0.2-1.0); CALCIUM 8.8 mg/dL (8.5-10.1); CARBON DIOXIDE,CO2 22.6 mmol/L (21.0-32.0); CREATININE 1.1 mg/dL (0.8-1.3); EST CRCL DRUG DOSING (CG) 79.51 mL/min; POTASSIUM,K 3.1 mmol/L (3.5-5.1); PROTEIN TOTAL,TP 6.5 g/dL (6.4-8.2)
[2023-08-28] MEDS ORDERED: Potassium Chloride 20 MEQ Tab.ER PO ONE ×2 (09:20→10:30)
[2023-08-28] MEDS: Potassium Chloride 100 ML IV SCH ×3 (10:13→10:39)
[2023-08-28] MEDS: predniSONE 20 MG Tab PO SCH (12:15)
[2023-08-28] MEDS: ZINC 50 MG PO SCH (12:16)
== END 2023-08-28 15:10 | disposition home or self-care (01) | DRG 394 ==
LOC: MW.ED 18:52 → MW.MS 21:21
PROVIDERS: ADMIT Internal Medicine; ATTEND Internal Medicine
DX: K52.1 Toxic gastroenteritis and colitis (principal); N17.9 Acute kidney failure, unspecified; T45.1X5A Adverse effect of antineoplastic and immunosuppressive drugs, initial encounter; C43.9 Malignant melanoma of skin, unspecified; E16.2 Hypoglycemia, unspecified; E78.00 Pure hypercholesterolemia, unspecified; E86.0 Dehydration; Z98.890 Other specified postprocedural states; Z79.899 Other long term (current) drug therapy; Z90.49 Acquired absence of other specified parts of digestive tract
CPT/HCPCS: 36415; 80053; 82947; 83735; 85025; 96360; 99283; 99285-25; A9270-GY; J2405; J3480; J7030; J7120; J7121